=== PATIENT | female | born 1940 | race Caucasian/White ===

== ENCOUNTER → 2020-02-18 08:20 | Outpatient (CLI) | payer MEDICARE, OTHER, SELFPAY ==
[2020-02-18 22:31] LABS: COVID19 Sendout Not Detected (Not Detect)
== END ==
PROVIDERS: Visit Provider Physician Assistant
DX: Z11.59 Encounter for screening for other viral diseases (principal)
CPT/HCPCS: 87635

== ENCOUNTER 2020-02-22 13:24 | Observation (INO) | payer MEDICARE, OTHER, SELFPAY ==
[2020-02-14 07:49] VITALS: BMI 29.5
[2020-02-21] VITALS (21 sets, daily range): BP systolic 121–161; BP diastolic 44–78; PULSE 77–114; RESP 10–20; TEMP 35.6–36.3; O2SAT 95–100; BMI 29.5
--- NOTE | 2020-02-21 | DI.RAD.S_ITS ---
PROCEDURE: XR LUMBAR SPINE 2-3V INDICATIONS: L3-4, L4-5 TLIF TECHNIQUE: 2 operative views of the lumbar spine were acquired. COMPARISON: None. FINDINGS: AP and lateral operative images demonstrate posterior lateral roosevelt and pedicle screw fixation of L3 through L5 with interbody cage material placement. IMPRESSION: Operative imaging utilized for lumbar fusion surgery with no radiographic evidence of complications. Dictated by: Kristopher Schafer M.D. on 02/21/2020 at 12:37 Approved by: Kristopher Schafer M.D. on 02/21/2020 at 12:38
[2020-02-21] MEDS: LACTATED RINGERS 1,000 ML 42 ML IV ×3 (07:13→12:39)
--- NOTE | 2020-02-21 07:28 | SUR.OPER ---
Prone on spine table, head in foam head support, padded chest and pelvic supports, gel pad at knees, lower legs supported by pillows; nipples, genitalia and toes free of pressure, arms secured on foam padded arm boards at <90 degrees abduction. Tape over blanket at thigh secured to table.
--- NOTE | 2020-02-21 07:46 | PM.PREOP ---
Pre-operative Note COVID-19 COVID-19 status: Negative Result date/Date tested (Pos, Neg/Pending): 02/19/20 Interval Note History & Physical reviewed/Exam performed by Physician: Yes Changes to H&P: No
[2020-02-21 07:48] LABS: Hematocrit 39.9 % (36-46); Hemoglobin 13.3 g/dL (12.0-16.0); Mean Corpuscular HGB Conc 33.4 % (30-36); Mean Corpuscular Hemoglobin 30.3 PG (26-34); Mean Corpuscular Volume 90.8 fL (80-100); Platelet Count 215 X10^3/uL (150-400); Red Blood Cell Count 4.39 X10^6/uL (4.0-5.2); Red Cell Distribution Width 12.9 % (11.6-14.8); White Blood Cell Count 4.5 X10^3/uL (4.5-11.0)
[2020-02-21 07:56] LABS: Alanine Aminotransferase 16 IU/L (<35); Albumin 4.3 g/dL (3.5-5.0); Albumin Globulin Ratio 1.2 (1.0-2.8); Alkaline Phosphatase 49 U/L (38-126); Aspartate Aminotransferase 34 IU/L (14-36); Bilirubin Total 0.6 mg/dL (0.2-1.3); Bilirubin Unconjugated 0.4 mg/dL (0.0-1.1); Blood Urea Nitrogen 22 mg/dL (7-17); Calcium 9.7 mg/dL (8.4-10.2); Carbon Dioxide 28 mmol/L (22-32); Chloride 104 mmol/L (98-107); Estimated Glomerular Filt Rate > 60.0 mL/min (>60); Globulin 3.6 g/dL (1.7-4.1); Glucose 110 mg/dL (80-110); HEMOLYSIS 49 (0-50); Potassium 3.7 mmol/L (3.4-5.1); Sodium 137 mmol/L (137-145); Total Protein 7.9 g/dL (6.3-8.2)
[2020-02-21 08:04] LABS: Prothrombin Time 11.6 SECONDS (10.1-12.7)
[2020-02-21] MEDS: CEFAZOLIN 2 GM/100 ML FROZ.PIGGY IV ×2 (08:05→15:31)
[2020-02-21] MEDS: BUPIVACAINE 0.25% W/ EPI 30 ML VIAL INJ (08:41)
[2020-02-21] MEDS: BUPIVACAINE LIPOSOME 266 MG/20 ML VIAL INJ (08:41)
[2020-02-21] MEDS: ACETAMINOPHEN IV 1,000 MG/100 ML VIAL 400 MG IV (09:34)
--- NOTE | 2020-02-21 12:13 | P.OP_ITS ---
Operative Date/Time/Diagnoses Date of procedure: 02/21/20 Time of procedure: 07:56 Pre-op diagnosis: 1. L3-4, L4-5 spondylolisthesis 2. L3-4, L4-5 spinal stenosis with radiculopathy Post-op diagnosis: same Procedure & Clinicians Procedure: 1. L3-4, L4-5 Postero-lateral and posterior interbody fusion 2. L3-4, L4-5 interbody cage placement. 3. L3-4, L4-5 decompressive laminectomy with bilateral facetecomies 4. L3-4, L4-5 Posterior segmental instrumentation 5. Uriah of bone marrow from iliac crest 6. Utilization of microsurgical technique and operating microscope Same procedure as scheduled: Yes Indications: Patient has been having chronic back pain and worsening lumbar radiculopathy. Patient failed multiple conservative management with worsening pain weakness and numbness in her lower extremity. Patient has been having difficulty performing activity of daily living. After discussing risks benefits of treatment options, patient elected proceed with surgery. Surgeon: Glen Meadows Dormitory Keeper: Sariah Camilo Click Yes if Unassisted: No Anesthesia Type: General Operative Notes Closure Type: primary Specimen(s): none sent Prosthetic devices, grafts, tissues, transplants, or devices: Globus revolve screws, Rise cages Applied: catheter Estimated Blood Loss (mL): 300 Blood products transfused: none Procedure in detail: Patient was seen in the preoperative area. Risks and benefits of the surgery was discussed with the patient. Informed consent was obtained from the patient and placed in the chart. Surgical site was marked. Patient was taken to the operative room. General anesthesia was administered. Prophylactic antibiotic was given to the patient less than 30 min before the incision was made. Patient was placed into a prone position on the Earnest table. Patient's back was then prepped and draped in the sterile fashion. Time- out was performed at this time. Using AP and lateral C-arm imaging the interval between L3-4, L4-5 was identified and marked on patient's back. A 2 inch incision 2 in from midline was made on the left side first. The fascia was incised in line with skin incision. Globus MARS retractors was placed inside the incision and docked onto the L3 and L4 lamina. Using microsurgical technique and operating microscope, a L3 and L4 laminectomy and L3-4, L4-5 facetectomy was performed using a Kerrison rongeur. The disc space at L3-4, L4-5 was identified. And a total diskectomy was performed at L3-4, L4-5 level. The endplates were decorticated using a rasp and shaver. The total diskectomy and decortication was performed at L3-4, L4-5 level in order to to accomplish a L3-4, L4-5 fusion. The local bone from the laminectomy and facetectomy was saved for local bone grafting. After the total diskectomy and decortication was completed, Trifecta bone graft material was combined with local bone that was harvested earlier. At this time, a separate skin is incision was made over the iliac crest. A Jamshidi needle was inserted into the iliac crest through a separate skin incision. 5 cc of bone marrow aspiration was obtained through the separate skin incision using a Jamshidi needle from the iliac crest. The bone marrow aspiration was combined with local bone and the Trifecta bone grafting material. The bone grafting material was placed into the L3-4, L4-5 interbody space along with two cages, one expandable cage at each level. The cages were expanded to their maximum height using the torque limiting screwdriver. At this time a mirror image incision was made on the right side. The fascia was incised in line with the skin incision. Globus MARS retractor was inserted and docked onto the L3-4, L4-5 posterolateral gutter. Using the power drill, posterior-lateral decortication was performed at L3-4, L4-5 level until bleeding cortical bone was identified. The remaining bone grafting material was placed into the L3-4, L4-5 posterior lateral gutter he order to accomplish posterolateral fusion at the L3-4, L4-5 levels. Using the double C-arm technique, pedicle screws were placed into the L3, L4, L5 pedicles bilaterally. This was done by placing the Jamshidi needle into the pedicles, then placing the guidewires over the Jamshidi needle, and finally placing the cannulated screws over the guidewires bilaterally. After the pedicle screws were placed, 2 titanium rods was locked into the heads of the pedicle screws using locking caps and torque limiting screwdriver. Total 6 pedicles screws were placed. After all the hardware was placed, and confirmed with AP and lateral C-arm imaging, the wound was then irrigated with sterile normal saline and packed with Ray-Janet gauze for 3 min to accomplish hemostasis. After the gauze was removed the deep fascia was closed with #1 Vicryl suture. The subcutaneous layer was closed with 2-0 Vicryl. The skin was closed with skin eliot. Patient tolerated the procedure well. There were no complications. Complications: none Post-operative Condition: stable Disposition: PACU Plan for aftercare: Admit to inpatient hospital
[2020-02-21] MEDS: ONDANSETRON 4 MG/2 ML INJ IV (12:26)
[2020-02-21] MEDS: HYDROMORPHONE 2 MG INJ IV ×3 (12:26→12:59)
[2020-02-21] MEDS: hydrOXYzine 50 MG/ML INJ 25 MG IM (12:26)
[2020-02-21] MEDS: fentaNYL 100 MCG/2 ML INJ IV (12:34)
--- NOTE | 2020-02-21 14:01 | PC.NURSE ---
Day shift: Pt on unit at approx 1355 from PACU. Sleeping now. Spouse in room for support. VS WNL. 100% RA. Tolerating SCD's. Call light in reach. Bed alarm on. Pt high fall risk at this time.
[2020-02-21] MEDS: SODIUM CHLORIDE 0.9% 1,000 ML 100 ML IV (14:57)
--- NOTE | 2020-02-21 15:08 | OT.IPNOTE ---
Checked on Pt for OT eval, pt still not fully awake. Able to talk to pt's regarding home set-up and prior level, no charge.
[2020-02-21] MEDS: OXYCODONE IR 10 MG TABLET PO ×3 (15:36→22:10)
[2020-02-21] MEDS: HYDROMORPHONE 0.5 MG INJ IV (16:29)
--- NOTE | 2020-02-21 16:32 | PT-IP ANOTE ---
Received PT orders and reviewed chart. Contacted pt to initiate evaluation but pt quite drowsy and reporting 8/10 pain. PT will see pt in the morning.
[2020-02-21] MEDS: hydrOXYzine pamoate 25 MG CAPSULE PO (17:15)
[2020-02-21] MEDS: SENNOSIDES 8.6 MG TABLET 17.2 MG PO (21:00)
[2020-02-21] MEDS: LOSARTAN 50 MG TABLET 100 MG PO (21:00)
[2020-02-21] MEDS: FISH OIL 1,000 MG CAPSULE 1000 MG PO (21:01)
[2020-02-21] MEDS: DOCUSATE 100 MG CAPSULE PO (21:01)
[2020-02-21] MEDS: EZETIMIBE 10 MG TABLET PO (21:01)
[2020-02-22] VITALS (7 sets, daily range): BP systolic 117–148; BP diastolic 53–77; PULSE 74–104; RESP 17–19; TEMP 36.3–37.4; O2SAT 95–100
[2020-02-22] MEDS: SODIUM CHLORIDE 0.9% 1,000 ML 100 ML IV (00:34)
[2020-02-22] MEDS: CEFAZOLIN 2 GM/100 ML FROZ.PIGGY IV (00:34)
[2020-02-22] MEDS: OXYCODONE IR 10 MG TABLET PO ×7 (00:34→20:24)
[2020-02-22 05:34] LABS: Hematocrit 27.1 % (36-46); Hemoglobin 9.1 g/dL (12.0-16.0)
[2020-02-22] MEDS: LEVOTHYROXINE 25 MCG TABLET PO (05:38)
--- NOTE | 2020-02-22 07:34 | PM.PNPO.1 ---
Subjective Subjective Date Patient Seen: 02/22/20 Time Patient Seen: 07:34 Interval history: POD #1 s/p L3-[address] Meadows. Patient's pain well controlled last night. Nursing notes some mild confusion overnight. No complaints of numbness going down the legs. She still has a Cline catheter in place. She has not been up physical therapy yet. Exam Vital Signs (past 8 hours): - 02/22/20 00:07 02/22/20 04:45 Temperature 98.3 F 97.3 F L Pulse Rate 82 90 Respiratory Rate 18 17 Blood Pressure 120/57 L 117/60 Pulse Oximetry 97 97 Oxygen Delivery Method Room Air Oxygen Flow Rate 0 Narrative Exam Narrative: Patient lying in bed no acute distress. She is alert orient x3. Calves are soft, compressible, nontender bilaterally. SCDs on and functioning. She is able to actively dorsiflex and plantar flex. Sensation intact to light touch throughout bilateral lower extremities. Cline catheter in place. Objective Labs Result Diagrams: 02/22/20 04:55 02/21/20 06:39 Labs: Laboratory Results - last 24 hr 02/21/20 02/21/20 02/21/20 06:39 06:39 07:32 WBC 4.5 RBC 4.39 Hgb 13.3 Hct 39.9 MCV 90.8 MCH 30.3 MCHC 33.4 RDW 12.9 Plt Count 215 PT 11.6 INR 1.0 Sodium 137 Potassium 3.7 Chloride 104 Carbon Dioxide 28 BUN 22 H Creatinine 0.71 Estimated GFR > 60.0 BUN/Creatinine Ratio 31.0 H Glucose 110 Calcium 9.7 Total Bilirubin 0.6 Conjugated Bilirubin 0.0 Unconjugated Bilirubin 0.4 AST 34 ALT 16 Alkaline Phosphatase 49 Total Protein 7.9 Albumin 4.3 Globulin 3.6 Albumin/Globulin Ratio 1.2 02/22/20 04:55 WBC RBC Hgb 9.1 L Hct 27.1 L MCV MCH MCHC RDW Plt Count PT INR Sodium Potassium Chloride Carbon Dioxide BUN Creatinine Estimated GFR BUN/Creatinine Ratio Glucose Calcium Total Bilirubin Conjugated Bilirubin Unconjugated Bilirubin AST ALT Alkaline Phosphatase Total Protein Albumin Globulin Albumin/Globulin Ratio Assessment & Plan Post-op Postoperative Procedures: Procedures Operation Date: 02/21/20 07:45 Actual Procedures Side Surgeon p L3-4, L4-5 TLIF with posterior instrumentation Glen Meadows MD Patient will mobilize with physical therapy today. No excessive bending, lifting, or twisting. If patient is mobilizing well in room can remove Cline catheter today. Continue current pain control. If patient is mobilizing safely, and voiding she may be able to go home in next 1-2 days. Quality VTE Deep Vein Thrombosis/Pulmonary Embolism Present on Admission: No
[2020-02-22] MEDS: MAGNESIUM OXIDE 400 MG TABLET 200 MG PO (07:54)
[2020-02-22] MEDS: TRIAMTERENE/HCTZ 37.5/25 TABLET 1 CAP PO (07:54)
[2020-02-22] MEDS: ACETAMINOPHEN 325 MG TABLET 650 MG PO (07:59)
[2020-02-22] MEDS: DOCUSATE 100 MG CAPSULE PO ×2 (07:59→20:17)
[2020-02-22] MEDS: CHOLECALCIFEROL (VITAMIN D3) 5,000 UNIT TABLET 5000 UNIT PO (07:59)
[2020-02-22] MEDS: FISH OIL 1,000 MG CAPSULE 1000 MG PO ×2 (08:04→20:17)
--- NOTE | 2020-02-22 09:40 | PT.IIE ---
Current Diagnoses Spondylolisthesis, lumbar region (02/21/20) Spinal stenosis, lumbar region without neurogenic claudication (02/21/20) Surgery Performed Operation Date: 02/21/20 07:45 Actual Procedures p L3-4, L4-5 TLIF with posterior instrumentation - Glen Meadows MD Surgical History (Last Updated 02/10/20 @ 09:23 by Teodora Burr RN) Hx of cholecystectomy (Acute 1992) Hx of dilation and curettage (Acute ~1963) Hx of left mastectomy (Acute 1985) Hx of right mastectomy (Acute 1992) Hx of varicose vein ligation (Acute 1984) Medical History (Last Updated 02/14/20 @ 07:49 by Teodora Burr RN) Afib (Acute) Anxiety (Acute) Arthritis (Acute) Bilateral leg cramps (Acute) Breast cancer, left (Acute 1985) Breast cancer, right (Acute 1992) Hearing impaired (Acute) Hepatic cyst (Acute ~2009) HLD (hyperlipidemia) (Acute) HTN (hypertension) (Acute) Hx of vaginal delivery (Acute) Hypothyroid (Acute) Pedal edema (Acute) Physical Therapy Inpatient Evaluation/Re-Eval M1 PT/OT-IP Prior Functional Status Start: 02/21/20 15:58 Freq: NEEDED Status: Active Protocol: Document 02/22/20 09:40 AB (Rec: 02/22/20 12:19 AB [email or web address]) Medical Review Prior Functional Status Medical History Reviewed Yes Communication able to make needs known Mobility and Gait pt stated that she is independent with all mobilities and ambulation without AD Social History Household Members spouse Living Arrangements House Number of Floors (Floors) One Floor Number of Stairs To Enter/Railing? 3 steps with wide rails to enter from the front 3 steps with L rail ascending fromt he garage Home Environment Standard Height Toilet,Walk in Shower,Built-In Shower Seat Home Equipment Four Wheel Walker,Quad Cane, Hand Held Shower,Grab Bars In Shower Employment Status Retired M2 PT-IP Current Condition Start: 02/21/20 15:58 Freq: NEEDED Status: Active Protocol: Document 02/22/20 09:40 AB (Rec: 02/22/20 12:19 AB [email or web address]) Physical Therapy Current Condition Current Condition Evaluation Date 02/22/20 Treatment Diagnosis s/p L3-4, 4-5 fusion/lami; difficulty in walking Onset Date 02/21/20 Precautions Lumbar Precautions Log Roll,No Twisting,Limit Bending,Lifting Restriction of 10 lbs,Gait Belt above Incisional Area M3 PT-IP Subjective Start: 02/21/20 15:58 Freq: NEEDED Status: Active Protocol: Document 02/22/20 09:40 AB (Rec: 02/22/20 12:19 AB [email or web address]) Subjective Physical Therapy Visit Type Type Initial Evaluation Visit Start Time 09:40 Visit Stop Time 10:31 Total Visit Minutes 51 Number of SEISMIC OBSERVER Visits 0 Physical Therapy Visit Comments Patient Comments pt is agreeable to do PT Therapy Pain Assessment Pain When Pain Assessed At Rest Pain Present Pain Present Pain Reported Location lower back Intensity 2 Scale Used Numeric (0 - 10) Pain Management Techniques Apply Cold,Distraction, Modification of Treatment,Re- positioning,Timing of Activity with Medications M4 PT-IP Mobility and Gait Start: 02/21/20 15:58 Freq: NEEDED Status: Active Protocol: Document 02/22/20 09:40 AB (Rec: 02/22/20 12:19 [email or web address]) PT-Bed Mobility Assessment Rolling Type of Rolling Log Rolling Level of Assist Standby Assistance Supine to Sit Supine to Sit Standby Assistance Scooting Scooting to Edge of Bed Standby Assistance PT-Transfer Assessment Sit to and From Stand Sit to and from Stand Minimal Assistance,1 Person Assistance,Use of Upper Extremities Equipment Transfer Assistive Device Gait Belt,Front Wheeled Walker Orthotic/Prosthetic Devices or Brace: No Transfers Transfer Destination Chair Transfer Technique ambulated using FWW Transfer Ability Level of Assist Minimal Assistance,1 Person Assistance,Use of Upper Extremities Comments Mobility Comments educated on back precautions and log roll bed mobility. completed supine to sit SBA. pt was able to sit on EOB SBA. completed sit to stand min A and cues and ambulated using FWW to the chair min A and cues with (+) LOB requiring min A for stability. pt agreed to sit up on chair. call light and table placed within reach. Gait Assessment Gait Gait Assistance Required: Minimum Assistance Distance (Feet) 12 Able to Maintain Weight Bearing Status Yes During Gait Assistive Devices Assistive Device Gait Belt,Front Wheeled Walker Orthotic/Prosthetic Devices or Brace: No Gait Deviations General Gait Pattern Antalgic Factors Limiting Gait Function Factors Limiting Gait Function Decreased Activity Tolerance, Decreased Strength,Limited Range of Motion,Pain,Poor Balance,Poor Safety Awareness PT-Balance Assessment Sitting Balance and Reactions Static Sitting Balance Ability Good Dynamic Sitting Balance Ability Good Standing Balance and Reactions Static Standing Balance Ability Fair Dynamic Standing Balance Ability Fair Device Used FWW M5 PT-IP Objective Assessments Start: 02/21/20 15:58 Freq: NEEDED Status: Active Protocol: Document 02/22/20 09:40 AB (Rec: 02/22/20 12:19 AB [id number]) Orientation Orientation/Cognition Level of Alertness Alert Orientation Name,Place,Situation Language Function Ability Hard of Hearing Safety Awareness Decreased Safety Awareness Gross Range of Motion Lower Extremity ROM Assessment Within Functional Limits Strength Lower Extremity Strength Assessment Bilaterally Impaired Hip 4/5 Knee 4/5 Coordination Assessment Gross Coordination Gross Coordination WNL Sensation Assessment Sensation Gross Sensation Left LE Impaired Sensation Description Numbness,Tingling Muscle Tone Muscle Tone WNL Yes M6 PT-IP Treatment Start: 02/21/20 15:58 Freq: NEEDED Status: Active Protocol: Document 02/22/20 09:40 AB (Rec: 02/22/20 12:19 AB [email or web address]) Physical Therapy Treatment Education Education Provided Precautions,Weight Bearing Status,Post-Op Packet,Safety M7 PT-IP Assessment and Plan Start: 02/21/20 15:58 Freq: NEEDED Status: Active Protocol: Document 02/22/20 09:40 AB (Rec: 02/22/20 12:19 AB [id number]) PT Summary Assessment and Plan Potential Rehabilitation Potential Good Status of Condition at Evaluation Stable Summary Impairments Pain,ROM,Strength,Balance, Sensation,Bed Mobility, Transfers,Gait,Activity Tolerance Assessment Summary pt requiring min A with mobility and plans to go home with spouse to assist. will conduct caregiver training when appropriate as well as stair climbing training. will continue to assess progress for safe d/c paln Goals Bed Mobility Goal Independent Transfer Goal Standby Assistance,Front Wheeled Walker Gait Goal Standby Assistance,Front Wheel Walker Gait Distance 200 Other Goals improve ambulation to modified independent using FWW/4WW 250 ft up/down 3 steps L rail ascending SBA Days to Meet Goals 5 Frequency of Treatment Frequency Of Treatment Twice a Day Treatment Plan Physical Therapy Treatment Plan Bed Mobility Training,Transfer Training,Gait Training, Therapeutic Exercise,Balance Retraining,Post Op Education, Discharge Planning,Hot or Cold Pack,Neuromuscular Re-ed, Coordination Retraining,Manual Therapy Recommendations To Nursing Amount of Assist Needed 1 Person Assist Discharge Recommendations PT Discharge Recommendations Home with Assistance Transportation Needs at Discharge Private Vehicle
--- NOTE | 2020-02-22 12:08 | OT.IP.EVAL ---
Current Diagnoses Spondylolisthesis, lumbar region (02/21/20) Spinal stenosis, lumbar region without neurogenic claudication (02/21/20) Surgery Performed Operation Date: 02/21/20 07:45 Actual Procedures p L3-4, L4-5 TLIF with posterior instrumentation - Glen Meadows MD Past Medical History (Last Updated 02/14/20 @ 07:49 by Teodora Burr RN) Afib (Acute) Anxiety (Acute) Arthritis (Acute) Bilateral leg cramps (Acute) Breast cancer, left (Acute 1985) Breast cancer, right (Acute 1992) Hearing impaired (Acute) Hepatic cyst (Acute ~2009) HLD (hyperlipidemia) (Acute) HTN (hypertension) (Acute) Hx of vaginal delivery (Acute) Hypothyroid (Acute) Pedal edema (Acute) Surgical History (Last Updated 02/10/20 @ 09:23 by Teodora Burr RN) Hx of cholecystectomy (Acute 1992) Hx of dilation and curettage (Acute ~1963) Hx of left mastectomy (Acute 1985) Hx of right mastectomy (Acute 1992) Hx of varicose vein ligation (Acute 1984) Occupational Therapy Inpatient Evaluation/Re-Eval M1 PT/OT-IP Prior Functional Status Start: 02/22/20 12:58 Freq: NEEDED Status: Active Protocol: Document 02/22/20 12:08 [facility] (Rec: 02/22/20 13:16 [facility] [id number]) Medical Review Prior Functional Status Medical History Reviewed Yes Communication able to make needs known Mobility and Gait pt stated that she is independent with all mobilities and ambulation without AD Activities of Daily Living and IADL's Pt was completely independent with all her ADl and IADl needs. Prior Functional Level (Other details) Pt has a supportive who will be home at all times to assist pt as needed. Social History Household Members spouse Living Arrangements House Number of Floors (Floors) One Floor Number of Stairs To Enter/Railing? 3 steps with wide rails to enter from the front 3 steps with L rail ascending from the garage Home Environment Standard Height Toilet,Walk in Shower,Built-In Shower Seat Home Equipment Four Wheel Walker,Quad Cane, Hand Held Shower,Grab Bars In Shower Employment Status Retired M2 OT-IP Current Condition Start: 02/22/20 12:58 Freq: Status: Active Protocol: Document 02/22/20 12:08 [facility] (Rec: 02/22/20 13:16 [facility] [id number]) Occupational Therapy Current Condition Current Condition Evaluation Date 02/22/20 Treatment Diagnosis S/P L3-L5 TLIF Diagnosis Onset Date 02/21/20 Post Operative Precautions Lumbar Precautions Log Roll,No Twisting,Limit Bending,Lifting Restriction of 10 lbs,Gait Belt above Incisional Area M3 OT- IP Subjective and Pain Start: 02/22/20 12:58 Freq: Status: Active Protocol: Document 02/22/20 12:08 [facility] (Rec: 02/22/20 13:16 [facility] [id number]) OT- Subjective Occupational Therapy Visit Type Type Initial Evaluation Visit Start Time 11:28 Visit Stop Time 12:08 Total Visit Minutes 40 Occupational Therapy Visit Comments Patient Comments Pt sitting up in the recliner and requesting to use the toilet. Pt' s present in the room. Patient/Caregiver Goals To go home. OT Pain Assessment Pain When Pain Assessed At Rest Pain Present Pain Present Pain Reported Location lower back Intensity 3 Scale Used Numeric (0 - 10) M4 OT- IP ADL's Start: 02/22/20 12:58 Freq: Status: Active Protocol: Document 02/22/20 12:08 [facility] (Rec: 02/22/20 13:16 [facility] [id number]) OT BET-Pdpn-Fabzqrd Comments OT Self-Feeding Comments Not at meal time. OT ADL-Grooming General Evaluation Grooming Ability Standby Assistance Areas Needing Assistance Retrieving/Set-up of Grooming Items Comments OT Grooming Comments vc to keep fww in front of her . OT ADL-Oral Care General Eval Oral Care Ability Standby Assistance Comments Oral Care Comments Vc to spit into the cup versus bend at her back to best follow back precautions. OT ADL-Dressing General Eval Lower Body Dressing Ability Maximum Assistance Comments OT Dressing Comments Able to educate use of LB dressing equipment, pt able to demonstarte good safety to gagan/doff socks with sock aid and yarder operator. OT ADL-Toileting General Evaluation Toileting Ability Standby Assistance Comments OT Toileting Comments CGA for balnace while standing to wipe. Pt able to follow back precautions during her hygiene needs. OT ADL-Bathing Comments OT Bathing Comments To do tomorrow with pt and for caregiver training . M5 OT- IP IADL's Start: 02/22/20 12:58 Freq: Status: Active Protocol: Document 02/22/20 12:08 [facility] (Rec: 02/22/20 13:16 [facility] [id number]) OT-Instrumental Activities of Daily Living Home Safety Awareness Ability to Problem Solve Emergency Able to Problem Solve Situations Money Management Money Management Comments Pt's aware to provide supervision as needed as pt states feels groggy form pain medications. Meal Preparation Meal Preparation Comments to assist. Grain Oilseed Or Pasture Farm Worker Grain Oilseed Or Pasture Farm Worker Comments to assist. M6 OT- IP Functional Cognition Start: 02/22/20 12:58 Freq: Status: Active Protocol: Document 02/22/20 12:08 [facility] (Rec: 02/22/20 13:16 [facility] [id number]) Cognitive Factors Limiting Selfcare Function Cognitive Ability Level of Alertness Alert Patient Orientation Name,Place,Situation Attention Span Ability Capable of Focused Attention, Capable of Sustained Attention Ability to Follow Commands Able to Follow One Step Commands Safety Awareness Decreased Recall of Precautions,Decreased Ability to Apply Precautions Cognitive Comments Cognitive Assessment Comments Pt needing reminders for to recall no twisting. Pt needing safety cues for FWW to keep it in front or her and be careful not to twist when trying to turn the FWW. OT- Vision and Hearing OT- Hearing Assessment OT- Hearing Assessment WFL M7 OT- IP Mobility and Balance Start: 02/22/20 12:58 Freq: Status: Active Protocol: Document 02/22/20 12:08 [facility] (Rec: 02/22/20 13:16 [facility] [id number]) OT-Transfer Assessment Sit to and From Stand Sit to and from Stand Contact Guard Assistance, Minimal Assistance Transfers Transfer Ability Contact Guard Assistance Technique Transfer Destination Chair,Toilet Transfer Technique Stand Pivot Devices Transfer Assistive Devices Gait Belt,Front Wheeled Walker Comments Mobility Comments Able to educate pt's how to gagan/doff the gait belt and how to assist for transfers and from sit to stand. Pt's able to demonstrate good safety. OT- Balance Assessment Sitting Balance and Reactions Static Sitting Balance Ability Normal Dynamic Sitting Balance Ability Good Standing Balance and Reactions Static Standing Balance Ability Fair Comments Other Balance Tests/Deviations/Treatment Pt needing to hold to FWW or : grab bar while standing to wipi and also CGA from OT. M8 OT- IP Objective Assessments Start: 02/22/20 12:58 Freq: Status: Active Protocol: Document 02/22/20 12:08 [facility] (Rec: 02/22/20 13:16 [facility] [id number]) OT Gross Range of Motion Upper Extremity Range of Motion Assessment Within Functional Limits OT Strength Upper Extremity Strength Assessment Within Functional Limits OT-Muscle Tone Assessment Muscle Tone WNL Yes M9 OT- IP Assessment and Plan Start: 02/22/20 12:58 Freq: Status: Active Protocol: Document 02/22/20 12:08 [facility] (Rec: 02/22/20 13:16 [facility] [id number]) OT Summary Assessment and Plan Potential Rehabilitation Potential Good Analytic Complexity at Evaluation Low Summary OT Impairments Pain,Balance,Functional Cognition,Functional Mobility, Grooming,Dressing,Toileting, Bathing,Toilet Transfers, Shower Transfers,Activity Tolerance Progress Towards Goals Progressing Toward Goals Assessment Summary Pt low complexity after L3-L5 TLIF and doing well and pt's has already initiated caregiver training to be able to assist pt for transfers and ADL's. To go over showering needs tomorrow for OT. Pt would benefit from BSC and shower chair at home. To issue LB dressing equipment tomorrow. Pt looking to go home with her when medically stable. Goals Grooming Goal Independent Dressing Goal Independent Toileting Goal Independent Bathing Goal Independent Toilet Transfer Goal Independent Shower Transfer Goal Independent Patient/Caregiver Education Goal Demonstrate Post-Op Precautions,Caregiver Independent Assisting Patient Days to Meet Goals 4 Frequency of Treatment Frequency Of Treatment Once a Day Treatment Plan OT Treatment Plan ADL Training,Functional Cognition Training,Functional Mobility,Patient/Family Education,Discharge Planning Other Treatment Recommendations and Next shower Treatment Focus Discharge Recommendations OT Discharge Recommendations Home with Assistance Home Equipment Needs BSC, showeer chair Transportation Needs at Discharge Private Vehicle
--- NOTE | 2020-02-22 13:37 | CM.DANOTE ---
DCP/Assessment: Reviewed chart. Patient is a 79yr old female [facility] performed by Dr. Meadows on 02-21-20. PCP is Dr. Majano. Primary payor is 1)Medicare 2)[facility]. Met with patient and spouse explained role. Patient reports that she plans to d/c home with supportive spouse. Patient plans to see PT this AM. Prior to admit patient I in all ADL's. Patietnt does not anticipate any d/c planning needs. CM team to continue to follow. P: Home when stable. KIMMY Nixon Discharge Planning/Care Management Advanced directive, confirm from FAMILY Start: 02/21/20 14:06 Freq: Q24H Status: Complete Protocol: Document 02/21/20 14:16 YAD (Rec: 02/21/20 14:26 YAD [id number]) Advance Directive, confirm on record Time 14:26 Person contacted spouse Romero Copy received No Document 02/22/20 13:29 YAD (Rec: 02/22/20 13:29 YAD [id number]) Advance Directive, confirm on record Time 14:26 Person contacted spouse Romero Copy received No Time 13:29 Person contacted Romero and Pt Copy received No CM Discharge Assessment Start: 02/22/20 13:27 Freq: Status: Active Protocol: Document 02/22/20 13:27 KJS (Rec: 02/22/20 13:37 KJS [id number]) Discharge Planning Assessment Assigned Concrete Swimming Pool Installer KIMMY Nixon Contact Information Romero Magallon (spouse) # Advance Directives? Yes Advance Directives on File No History Provided By Patient,Medical Record Prior Living Arrangements House Household Members spouse Type of transporation used prior to Drives own vehicle admit Independent with ADL's Yes Is patient alert and oriented? Yes Caregiver for Another No Barriers to Discharge No Discharge Plan Home Transportation Arrangement Family can provide transport. Referrals Initiated None needed Whiteboard Updated in Patient Room with Yes name and ext. # of Concrete Swimming Pool Installer Review Status In Process Next Review Type Continued Stay Review Pre-Anesthesia Assessment Start: 02/10/20 08:50 Freq: Status: Active Protocol: Document 02/14/20 07:49 CAB (Rec: 02/10/20 09:43 CAB [id number]) Pre-Anesthesia Assessment Preferred Name Edith Patient Information Reviewed Via Phone Assessment Assessment Completed With Patient Comment Pt will do labs/EKG today @ [facility], COVID screen @ 02/18/20 Primary Care Provider Alex Majano Seen Specialist in Last 12 Months Yes Specialist Seen Social Worker School,Orthopedist Comment PCP visit 02/10/20 scanned to record Primary Language Japanese Psychiatric Aide Required No Height 154.94 cm Weight 70.76 kg Body Mass Index (BMI) 29.5 Hearing Ability Hard of Hearing,Use of Hearing Aid Visual Assist Glasses Dentition Type Teeth, Natural Present Barriers to Learning None,Age related,Auditory Other Aids No Hx Anesthesia Reactions Yes: slower recovery on a few occasions Hx Family Anesthesia Reaction Yes: Sister-had an issue, unsure reaction Hx Malignant Hyperthermia No Hx Blood Transfusions No Anesthesia Review Requested No alcohol intake current Alcohol Intake Frequency Other: Socially Smoking Status Never smoker Substance Use Type does not use Pain Present Pain Reported Musculoskeletal Symptoms Abnormal Gait,Back Pain, Difficulty Walking,Joint Stiffness,Numbness,Radiating Pain into Limb History of Falling (Recent or History of No ) Patient is completely paralyzed or No completely immobile Mental Status Oriented to own ability Is patient on oxygen? No Does patient have SALAZAR/SOB No Hx Sleep Apnea No Currently Taking a Beta Mitzy No Can You Climb a Flight of Stairs Without Yes SOB Hx Chest Pain No Hx SOB No Hx Syncope or Dizziness Yes: If I get up too fast Anti-Coagulant Therapy Yes: ASA - afib Has a Social Worker School Yes: Dr. Moses-formerly [facility] Cardiac Testing Yes: Echo/[facility] 10/12/19 EF: 55% ZIO patch Hx Pacemaker/ICD No Pacemaker Rep Required? No Cardiac Clearance Received Yes Comment Cardiac records scanned to record Diet Type At Home Regular,Low Carb dysphagia No Urinary Catheter Present No Hx Urinary Self Catheterization No Diabetes No Patient No Lactating No Hx Drug Resistant Organism No Presence of External or Internal Medical Yes: Hearing aids Devices Have you had any close contact with No someone diagnosed with COVID-19? Marital Status Lives With spouse Prior Living Arrangements House Number of Floors (Floors) One Floor Support System Family,Sibling(s),Spouse Does the Patient Have Assistance After Yes Surgery Patient Discharge Plan Description Return Home Comment Pt advised 2 day length of stay per surgeon Feels Safe in Current Environment Yes Been Physically Hurt or Threatened By a No Person in Current Environment Do you have thoughts of harming yourself None or others? Are you currently considering suicide? No Do you have a plan to hurt yourself or No Plan others? Do You Have Any Spiritual Beliefs That No May Affect Your HC Choices? Do You Have Any Cultural Practices That No May Affect Your HC Choices? Comment Kervin Who Can We Speak to About Patient's Care Family, friends Identifying Code for Release of Patient Declines to issue Information Health Care Proxy/Next of Kin Romero () Health Care Proxy Emergency Contact Name Fer (sister) Emergency Contact Advance Directives? Yes Advance Directives on File No Requested Patient Bring Advanced Yes Directives DOS Power of Screw Machine Operator Single Spindle Yes Power of Screw Machine Operator Single Spindle Name Nell (daughter) Power of Screw Machine Operator Single Spindle Phone Number Pt to update dos PAC Instructions Durable medical equipment, Medications to take/avoid, Nasal antibiotic,No ETOH/ petroleum product on skin DOS, NPO,Pre-surgical wash,Sturdy shoes/comfortable clothes,Do not bring valuables and remove jewelry
--- NOTE | 2020-02-22 13:58 | PT.IPTN ---
Current Diagnoses Spondylolisthesis, lumbar region (02/21/20) Spinal stenosis, lumbar region without neurogenic claudication (02/21/20) Surgery Performed Operation Date: 02/21/20 07:45 Actual Procedures p L3-4, L4-5 TLIF with posterior instrumentation - Glen Meadows MD Physical Therapy Treatment Note M2 PT-IP Current Condition Start: 02/21/20 15:58 Freq: NEEDED Status: Active Protocol: Document 02/22/20 09:40 AB (Rec: 02/22/20 12:19 AB [id number]) Physical Therapy Current Condition Current Condition Evaluation Date 02/22/20 Treatment Diagnosis s/p L3-4, 4-5 fusion/lami; difficulty in walking Onset Date 02/21/20 Precautions Lumbar Precautions Log Roll,No Twisting,Limit Bending,Lifting Restriction of 10 lbs,Gait Belt above Incisional Area M3 PT-IP Subjective Start: 02/21/20 15:58 Freq: NEEDED Status: Active Protocol: Document 02/22/20 13:19 (Rec: 02/22/20 15:14 [id number]) Subjective Physical Therapy Visit Type Type Treatment Note Visit Start Time 13:19 Visit Stop Time 13:58 Total Visit Minutes 39 Notes ANNE Combs, was present and supervised by Katty Alarcon PTA. Romero present for caregiver training. Number of SPORTS MARKETING COORDINATOR Visits 1 Physical Therapy Visit Comments Patient Comments pt is agreeable to do PT Therapy Pain Assessment Pain When Pain Assessed During Mobility Pain Present Pain Present Pain Reported Location lower back Intensity 5 Scale Used Numeric (0 - 10) Description Tightness Pain Management Techniques Re-positioning,Timing of Activity with Medications M4 PT-IP Mobility and Gait Start: 02/21/20 15:58 Freq: NEEDED Status: Active Protocol: Document 02/22/20 13:19 (Rec: 02/22/20 15:14 [id number]) PT-Bed Mobility Assessment Sit to Supine Sit to Supine Minimal Assistance PT-Transfer Assessment Sit to and From Stand Sit to and from Stand Standby Assistance,Contact Guard Assistance Equipment Transfer Assistive Device Gait Belt,Front Wheeled Walker Orthotic/Prosthetic Devices or Brace: No Transfers Transfer Destination Bed,Toilet Transfer Technique Stand Step Pivot Transfer Ability Level of Assist Standby Assistance,Contact Guard Assistance Comments Mobility Comments Pt found in chair upon entering room. Pt used FWW for sit to stand from chair w/ CGA to assess mobility and then switched to SBA. Pt ambulated in the hallway, descend/ascend 3 steps and returned back to room to work on BM. Before getting in bed pt went to the bathroom requiring CGA stand to sit w/ the help of a wall rail while parted gown for her. When finished pt performed sit to stand from toilet independently even though she was asked to wait for assistance. Pt log rolled from L side of bed w/ Min A of LE. Pt required cues for appropriate sequencing of reverse log roll. Pt left in supine w/ alarm on, SCD's on and all needs within reach and present. At the end of tx EDUCATION PROGRAM COORDINATOR was notified about her urine output. Gait Assessment Gait Gait Assistance Required: Contact Guard Assist Distance (Feet) 150 Able to Maintain Weight Bearing Status Yes During Gait Assistive Devices Assistive Device Gait Belt,Front Wheeled Walker Orthotic/Prosthetic Devices or Brace: No Gait Deviations General Gait Pattern Antalgic,Decreased Stride Length,Flexed Trunk Factors Limiting Gait Function Factors Limiting Gait Function Decreased Activity Tolerance, Decreased Strength,Limited Range of Motion,Pain,Poor Balance,Poor Safety Awareness Comments Gait Comments Pt ambulated in hallway 150 ft w/ FWW and CGA. Pt demonstrated a flexed posture, decreased stride length, but did have good foot clearance. Pt was very aware of back precautions and stayed within walker for safety. Pt used 3 point step through gait pattern w/ FWW. walked with her for 75 ft w/ CGA. Stair Climbing Assessment Evaluation Level of Assist On Stairs Contact Guard Assistance Devices Stair Climbing Assistive Devices Left Railing Technique/Endurance Stair Climbing Direction Ascend and Descend Stair Climbing Technique Step to Step Number of Steps Climbed 3 Stair Climbing Set # Repetitions (reps) 2 Comments Stair Climbing Comments Pt ascend/descend stairs w/ L rail CGA and hand hold one time w/ SPORTS MARKETING COORDINATOR for demonstration. Caregiver edu included performing second stair set w/ CGA and hand hold . PT-Balance Assessment Sitting Balance and Reactions Static Sitting Balance Ability Good Dynamic Sitting Balance Ability Good Standing Balance and Reactions Static Standing Balance Ability Fair Dynamic Standing Balance Ability Fair Device Used FWW M5 PT-IP Objective Assessments Start: 02/21/20 15:58 Freq: NEEDED Status: Active Protocol: Document 02/22/20 09:40 AB (Rec: 02/22/20 12:19 AB [id number]) Orientation Orientation/Cognition Level of Alertness Alert Orientation Name,Place,Situation Language Function Ability Hard of Hearing Safety Awareness Decreased Safety Awareness Gross Range of Motion Lower Extremity ROM Assessment Within Functional Limits Strength Lower Extremity Strength Assessment Bilaterally Impaired Hip 4/5 Knee 4/5 Coordination Assessment Gross Coordination Gross Coordination WNL Sensation Assessment Sensation Gross Sensation Left LE Impaired Sensation Description Numbness,Tingling Muscle Tone Muscle Tone WNL Yes M6 PT-IP Treatment Start: 02/21/20 15:58 Freq: NEEDED Status: Active Protocol: Document 02/22/20 09:40 AB (Rec: 02/22/20 12:19 AB [id number]) Physical Therapy Treatment Education Education Provided Precautions,Weight Bearing Status,Post-Op Packet,Safety M7 PT-IP Assessment and Plan Start: 02/21/20 15:58 Freq: NEEDED Status: Active Protocol: Document 02/22/20 13:19 (Rec: 02/22/20 15:14 [id number]) PT Summary Assessment and Plan Potential Rehabilitation Potential Good Status of Condition at Evaluation Stable Summary Impairments Pain,ROM,Strength,Balance, Sensation,Bed Mobility, Transfers,Gait,Activity Tolerance Progress Towards Goals Progressing Toward Goals Assessment Summary pt required SBA for mobility, CGA for both gait and stair climbing. Caregiver training initiated with Romero for stairs and walking. Pt amb 150 ft w/ CGA. Caregiver training w/ focus on BM to be conducted at 10 am tomorrow. Goals Bed Mobility Goal Independent Transfer Goal Standby Assistance,Front Wheeled Walker Gait Goal Standby Assistance,Front Wheel Walker Gait Distance 200 Other Goals improve ambulation to modified independent using FWW/4WW 250 ft up/down 3 steps L rail ascending SBA Days to Meet Goals 5 Frequency of Treatment Frequency Of Treatment Twice a Day Treatment Plan Physical Therapy Treatment Plan Bed Mobility Training,Transfer Training,Gait Training, Therapeutic Exercise,Balance Retraining,Post Op Education, Discharge Planning,Hot or Cold Pack,Neuromuscular Re-ed, Coordination Retraining,Manual Therapy Other Recommendations and Next Treatment Caregiver training Wed02/22 Focus at 10 am. BM and transfers worked on. Recommendations To Nursing Amount of Assist Needed 1 Person Assist Discharge Recommendations PT Discharge Recommendations Home with Assistance Transportation Needs at Discharge Private Vehicle Documentation reviewed by Tamica Alarcon PTA
[2020-02-22] MEDS: SENNOSIDES 8.6 MG TABLET 17.2 MG PO (20:17)
[2020-02-22] MEDS: LOSARTAN 50 MG TABLET 100 MG PO (20:17)
[2020-02-22] MEDS: EZETIMIBE 10 MG TABLET PO (20:18)
[2020-02-23 01:00] VITALS: BP 137/68; PULSE 100; RESP 16; TEMP 37.1; O2SAT 95
[2020-02-23 04:00] VITALS: BP 117/81; PULSE 97; RESP 18; TEMP 36.9; O2SAT 96
[2020-02-23] MEDS: LEVOTHYROXINE 25 MCG TABLET PO (05:43)
[2020-02-23 06:10] LABS: Hematocrit 27.1 % (36-46); Hemoglobin 9.1 g/dL (12.0-16.0); Mean Corpuscular HGB Conc 33.7 % (30-36); Mean Corpuscular Hemoglobin 30.7 PG (26-34); Mean Corpuscular Volume 91.1 fL (80-100); Platelet Count 146 X10^3/uL (150-400); Red Blood Cell Count 2.97 X10^6/uL (4.0-5.2); Red Cell Distribution Width 13.2 % (11.6-14.8); White Blood Cell Count 8.2 X10^3/uL (4.5-11.0)
[2020-02-23] MEDS: OXYCODONE IR 10 MG TABLET PO ×3 (06:19→13:07)
[2020-02-23 07:00] VITALS: BP 100/53; PULSE 88; RESP 15; TEMP 35.8; O2SAT 99
[2020-02-23] MEDS: DOCUSATE 100 MG CAPSULE PO (09:15)
[2020-02-23] MEDS: FISH OIL 1,000 MG CAPSULE 1000 MG PO (09:15)
[2020-02-23] MEDS: CHOLECALCIFEROL (VITAMIN D3) 5,000 UNIT TABLET 5000 UNIT PO (09:15)
[2020-02-23] MEDS: MAGNESIUM OXIDE 400 MG TABLET 200 MG PO (09:15)
[2020-02-23] MEDS: TRIAMTERENE/HCTZ 37.5/25 TABLET 1 CAP PO (09:19)
--- NOTE | 2020-02-23 10:57 | PT.IPTN ---
Current Diagnoses Spondylolisthesis, lumbar region (02/21/20) Spinal stenosis, lumbar region without neurogenic claudication (02/21/20) Surgery Performed Operation Date: 02/21/20 07:45 Actual Procedures p L3-4, L4-5 TLIF with posterior instrumentation - Glen Meadows MD Physical Therapy Treatment Note M2 PT-IP Current Condition Start: 02/21/20 15:58 Freq: NEEDED Status: Discharge Protocol: Document 02/22/20 09:40 AB (Rec: 02/22/20 12:19 AB [id number]) Physical Therapy Current Condition Current Condition Evaluation Date 02/22/20 Treatment Diagnosis s/p L3-4, 4-5 fusion/lami; difficulty in walking Onset Date 02/21/20 Precautions Lumbar Precautions Log Roll,No Twisting,Limit Bending,Lifting Restriction of 10 lbs,Gait Belt above Incisional Area M3 PT-IP Subjective Start: 02/21/20 15:58 Freq: NEEDED Status: Discharge Protocol: Document 02/23/20 10:17 SP (Rec: 02/23/20 15:04 SP [id number]) Subjective Physical Therapy Visit Type Type Treatment Note Visit Start Time 10:17 Visit Stop Time 10:57 Total Visit Minutes 40 Notes in room when arrived and provided all physical assist needed during tx. Number of SECURITY GUARD SUPERVISOR Visits 2 Physical Therapy Visit Comments Patient Comments pt is agreeable to do PT Therapy Pain Assessment Pain When Pain Assessed During Mobility Pain Present Pain Present Pain Reported Location lower back Intensity 2 Scale Used Numeric (0 - 10) Description With Movement Pain Management Techniques Re-positioning,Timing of Activity with Medications M4 PT-IP Mobility and Gait Start: 02/21/20 15:58 Freq: NEEDED Status: Discharge Protocol: Document 02/23/20 10:17 SP (Rec: 02/23/20 15:04 SP [id number]) PT-Bed Mobility Assessment Rolling Type of Rolling Log Rolling Level of Assist Minimal Assistance,1 Person Assistance Supine to Sit Supine to Sit Moderate Assistance,1 Person Assistance Sit to Supine Sit to Supine Moderate Assistance,1 Person Assistance Scooting Scooting to Edge of Bed Contact Guard Assistance PT-Transfer Assessment Sit to and From Stand Sit to and from Stand Contact Guard Assistance,1 Person Assistance,Use of Upper Extremities Equipment Transfer Assistive Device Gait Belt,Front Wheeled Walker Orthotic/Prosthetic Devices or Brace: No Transfers Transfer Destination Bed,Toilet Transfer Technique ambulated using FWW Transfer Ability Level of Assist Standby Assistance,Contact Guard Assistance,Use of Upper Extremities Comments Mobility Comments Pt was upright in chair when arrived, donned gait belt to patient and provided physical assist throught tx. Sit>stand CGA- Min A usign BUE on chair arms. SPT CGA using FWW chair>R side bed, good side stepping toward HOB with FWW, cuing for reaching back for slow descent to bed. sit> supine Mod A of 1 person and mod cuing for proper log roll to prevent twisting of her neck with good carryover from . supine>L log roll Min A >supine with Mod A support at upper trunk for righting using BUE and contact w/ cuing for BLE to EOB, scoot to EOB CGA, sit >stand CGA with cuing for hand pushing up from bed 1 UE. Ambulated further distance into hallway w/c follow but not needed to stairs and back approx 180 ft usign FWW small base receiprocal gait increased as distance progressed. Ascend/ descend 3 stairs step to gait with cuing for leading with RLE ascend/ LLE descend due to RLE not as strong, required Min A, assimulated home set up using L HR and YARDING SUPERVISOR RUE but stated will use SPC at home or will install a HR closer to reach B. Pt requested to use bathroom when returned to room, provided CGA and cuing for full pivot usign FWW and using of grab bar CGA for slow descent to toilet. Pt requested increased time in bathroom. SBA provided by and patient had call light in hand with good understanding its proper use, FULL FASHIONED GARMENT KNITTER notified paitent requring CGA before left. Gait Assessment Gait Gait Assistance Required: Contact Guard Assist Distance (Feet) 180 Able to Maintain Weight Bearing Status Yes During Gait Assistive Devices Assistive Device Gait Belt,Front Wheeled Walker Orthotic/Prosthetic Devices or Brace: No Gait Deviations General Gait Pattern Antalgic,Decreased Stride Length,Flexed Trunk Factors Limiting Gait Function Factors Limiting Gait Function Decreased Activity Tolerance, Decreased Strength,Limited Range of Motion,Pain,Poor Balance,Poor Safety Awareness Comments Gait Comments See mobility comments for further details. Stair Climbing Assessment Evaluation Level of Assist On Stairs Contact Guard Assistance Devices Stair Climbing Assistive Devices Left Railing Technique/Endurance Stair Climbing Direction Ascend and Descend Stair Climbing Technique Step to Step Number of Steps Climbed 3 Stair Climbing Set # Repetitions (reps) 1 Comments Stair Climbing Comments See mobility comments for further details. PT-Balance Assessment Sitting Balance and Reactions Static Sitting Balance Ability Good Dynamic Sitting Balance Ability Good Standing Balance and Reactions Static Standing Balance Ability Fair Dynamic Standing Balance Ability Fair Device Used FWW M5 PT-IP Objective Assessments Start: 02/21/20 15:58 Freq: NEEDED Status: Discharge Protocol: Document 02/22/20 09:40 AB (Rec: 02/22/20 12:19 AB [id number]) Orientation Orientation/Cognition Level of Alertness Alert Orientation Name,Place,Situation Language Function Ability Hard of Hearing Safety Awareness Decreased Safety Awareness Gross Range of Motion Lower Extremity ROM Assessment Within Functional Limits Strength Lower Extremity Strength Assessment Bilaterally Impaired Hip 4/5 Knee 4/5 Coordination Assessment Gross Coordination Gross Coordination WNL Sensation Assessment Sensation Gross Sensation Left LE Impaired Sensation Description Numbness,Tingling Muscle Tone Muscle Tone WNL Yes M6 PT-IP Treatment Start: 02/21/20 15:58 Freq: NEEDED Status: Discharge Protocol: Document 02/23/20 10:17 SP (Rec: 02/23/20 15:04 SP [id number]) Physical Therapy Treatment Education Education Provided Precautions,Weight Bearing Status,Safety M7 PT-IP Assessment and Plan Start: 02/21/20 15:58 Freq: NEEDED Status: Discharge Protocol: Document 02/23/20 10:17 SP (Rec: 02/23/20 15:04 SP [id number]) PT Summary Assessment and Plan Potential Rehabilitation Potential Good Status of Condition at Evaluation Stable Summary Impairments Pain,ROM,Strength,Balance, Sensation,Bed Mobility, Transfers,Gait,Activity Tolerance Progress Towards Goals Progressing Toward Goals Assessment Summary pt required Mod A for bed mobility, CGA during transfers and gait and Min for stair climbing. Pt amb 180 ft using FWW w/ CGA by . Recommended pm treatment to continue log roll and bed mobility to improve strengthening and assess progress to potentially DC this afternoon. Pt plans to return home with to assist her. Recommending HHPT to progress strength and endurance, not to PLOF at this time, patient agreed would be beneficial. Goals Bed Mobility Goal Independent Transfer Goal Standby Assistance,Front Wheeled Walker Gait Goal Standby Assistance,Front Wheel Walker Gait Distance 200 Other Goals improve ambulation to modified independent using FWW/4WW 250 ft up/down 3 steps L rail ascending SBA Days to Meet Goals 5 Frequency of Treatment Frequency Of Treatment Twice a Day Treatment Plan Physical Therapy Treatment Plan Bed Mobility Training,Transfer Training,Gait Training, Therapeutic Exercise,Balance Retraining,Post Op Education, Discharge Planning,Hot or Cold Pack,Neuromuscular Re-ed, Coordination Retraining,Manual Therapy Other Recommendations and Next Treatment Log roll and bed mobility. Focus Recommendations To Nursing Amount of Assist Needed Standby Assistance Discharge Recommendations PT Discharge Recommendations Home with Assistance,Home Health Transportation Needs at Discharge Private Vehicle
--- NOTE | 2020-02-23 11:04 | PC.NURSE ---
Assess- Patient medicated with 10mg of po oxycodone and helpful. She has worked with physical therapy. She is slow to move, but is following directions well. Her is in the room visiting and did some caregiver training with patient. She will most likely discharge home today. Denies any numbness or tingling in her lower extremities. Resting now. Dressing to lower back will be changed before she goes home, to a waterproof dressing.
[2020-02-23 11:25] VITALS: BP 125/73; PULSE 94; RESP 16; TEMP 36.9; O2SAT 99
--- NOTE | 2020-02-23 11:58 | OT.IP.TRT ---
Current Diagnoses Spondylolisthesis, lumbar region (02/21/20) Spinal stenosis, lumbar region without neurogenic claudication (02/21/20) Surgery Performed Operation Date: 02/21/20 07:45 Actual Procedures p L3-4, L4-5 TLIF with posterior instrumentation - Glen Meadows MD Occupational Therapy Treatment Note M3 OT- IP Subjective and Pain Start: 02/22/20 12:58 Freq: Status: Active Protocol: Document 02/23/20 11:10 [facility] (Rec: 02/23/20 16:32 [facility] [id number]) OT- Subjective Occupational Therapy Visit Type Type Treatment Note Visit Start Time 11:10 Visit Stop Time 11:58 Total Visit Minutes 48 Occupational Therapy Visit Comments Patient Comments Pt wanting to shower. Patient/Caregiver Goals To go home. OT Pain Assessment Pain When Pain Assessed At Rest Pain Present Pain Present Pain Reported Location lower back Intensity 4 Scale Used Numeric (0 - 10) M4 OT- IP ADL's Start: 02/22/20 12:58 Freq: Status: Active Protocol: Document 02/23/20 11:10 [facility] (Rec: 02/23/20 16:32 [facility] [id number]) OT [id number] Comments OT Self-Feeding Comments Not at meal time. OT ADL-Dressing General Eval Upper Body Dressing Ability Moderate Assistance Lower Body Dressing Ability Moderate Assistance Comments OT Dressing Comments Pt needing assist to help get brief over her feet and assist to put on her robe. OT ADL-Toileting General Evaluation Toileting Ability Standby Assistance OT ADL-Bathing Bathing Type Bathing Type Shower General Evaluation Bathing Ability Moderate Assistance Areas Needing Assistance Wash/Dry Back,Wash/Dry Perineal Area Comments OT Bathing Comments Pt's states to use BS as a shower chair at home and will be able to assist pt for all needs. M6 OT- IP Functional Cognition Start: 02/22/20 12:58 Freq: Status: Active Protocol: Document 02/23/20 11:10 [facility] (Rec: 02/23/20 16:32 [facility] [id number]) Cognitive Factors Limiting Selfcare Function Cognitive Comments Cognitive Assessment Comments Pt still a little forgetful of back precautions and needing reminders of how to do log rolling today. M7 OT- IP Mobility and Balance Start: 02/22/20 12:58 Freq: Status: Active Protocol: Document 02/23/20 11:10 [facility] (Rec: 02/23/20 16:32 [facility] [id number]) OT- Bed Mobility Assessment Sit to Supine Sit to Supine Assist Minimal Assistance,Moderate Assistance OT-Transfer Assessment Sit to and From Stand Sit to and from Stand Minimal Assistance Transfers Transfer Ability Contact Guard Assistance Technique Transfer Destination Bed,Chair,Shower Stall,Toilet Transfer Technique Stand Pivot Devices Transfer Assistive Devices Gait Belt,Front Wheeled Walker Comments Mobility Comments Pt's able to assist for transfers and bed mobility and needing initial vc for how to do reverse log rolling to be sure to have pt come down sideways onto her elbow and ear, and then able to assist with her legs up into the bed. OT- Balance Assessment Sitting Balance and Reactions Static Sitting Balance Ability Normal Dynamic Sitting Balance Ability Good Standing Balance and Reactions Static Standing Balance Ability Fair Comments Other Balance Tests/Deviations/Treatment THIERNO for balance while : stepping over threshold of the shower. M9 OT- IP Assessment and Plan Start: 02/22/20 12:58 Freq: Status: Active Protocol: Document 02/23/20 11:10 [facility] (Rec: 02/23/20 16:32 [facility] [id number]) OT Summary Assessment and Plan Potential Rehabilitation Potential Good Analytic Complexity at Evaluation Low Summary Progress Towards Goals Progressing Toward Goals Assessment Summary Pt going home today and pt's able to state good understanding and safety to be able to assist his at home. In addition pt to have other family members to assist . Goals Days to Meet Goals 1 Frequency of Treatment Frequency Of Treatment Once a Day Treatment Plan OT Treatment Plan ADL Training,Functional Cognition Training,Functional Mobility,Patient/Family Education,Discharge Planning Discharge Recommendations OT Discharge Recommendations Home with Assistance Home Equipment Needs BSC, showeer chair Transportation Needs at Discharge Private Vehicle
--- NOTE | 2020-02-23 13:14 | PM.DS.1 ---
History of Present Illness History of Present Illness Date Patient Seen: 02/23/20 Time Patient Seen: 13:15 Chief complaint: INPT Narrative: Patient's pain is moderate to severe. Denies fever chills. No nausea vomiting. Worked with physical therapy. Her daughter are home to assist her. Discharge Providers Provider Date of admission: 02/21/20 06:13 Discharge Date: 02/23/20 Primary care physician: Alex Majano MD Consults: 02/21/20 14:01 Consult to Occupational Therapy Evaluate & Treat Comment: Physician Instructions: Evaluate and treat Consult to Physical Therapy Evaluate & Treat Comment: Physician Instructions: Evaluate and Treat Discharge provider: Bryon Rivera PA-C Summary Hospital Course Discharge Diagnosis: 1. L3-4, L4-5 spondylolisthesis 2. L3-4, L4-5 spinal stenosis with radiculopathy Hospital Course: rocedure: 1. L3-4, L4-5 Postero-lateral and posterior interbody fusion 2. L3-4, L4-5 interbody cage placement. 3. L3-4, L4-5 decompressive laminectomy with bilateral facetecomies 4. L3-4, L4-5 Posterior segmental instrumentation 5. [place] of bone marrow from iliac crest 6. Utilization of microsurgical technique and operating microscope Same procedure as scheduled: Yes Indications: Patient has been having chronic back pain and worsening lumbar radiculopathy. Patient failed multiple conservative management with worsening pain weakness and numbness in her lower extremity. Patient has been having difficulty performing activity of daily living. After discussing risks benefits of treatment options, patient elected proceed with surgery. Surgeon: Glen Meadows Cork Cutter: Sariah Camilo Click Yes if Unassisted: No Anesthesia Type: General Operative Notes Closure Type: primary Specimen(s): none sent Prosthetic devices, grafts, tissues, transplants, or devices: Globus revolve screws, Rise cages Applied: catheter Estimated Blood Loss (mL): 300 Patient progressing as expected. Discharge home today in stable condition. Status at Discharge Cognitive/behavioral status at discharge: at baseline, oriented Functional status at discharge: uses cane/walker Time Spent with Patient Time spent: Less than 30 minutes Exam Vital Signs (past 8 hours): - 02/23/20 07:00 02/23/20 11:25 Temperature 96.5 F L 98.5 F Pulse Rate 88 94 H Respiratory Rate 15 16 Blood Pressure 100/53 L 125/73 Pulse Oximetry 99 99 Oxygen Delivery Method Room Air Oxygen Flow Rate 0 Narrative Exam Narrative: Pleasant 79-year-old female walking back to bed using a walker. Lumbar dressing is clean, dry and intact. Patient in no apparent distress. Able to get back in bed with very little assistance from her . Objective Labs Result Diagrams: 02/23/20 05:40 02/21/20 06:39 Labs: Laboratory Results - last 24 hr 02/23/20 05:40 WBC 8.2 D RBC 2.97 L Hgb 9.1 L Hct 27.1 L MCV 91.1 MCH 30.7 MCHC 33.7 RDW 13.2 Plt Count 146 L Discharge Assessment & Plan Assessment and Plan Assessment: Patient progressing as expected. Discharge home today in stable condition. Discharge Plan Discharge Plan Patient Disposition: Home Discharge orders & Medications Prescriptions: New acetaminophen 325 mg Tablet 650 mg PO Q6HR PRN (Reason: Pain, Mild (1-3)) Qty: 60 RF: 0 docusate sodium [DOK] 100 mg Capsule 100 mg PO BID Qty: 20 RF: 0 hydroxyzine pamoate 25 mg Capsule 25 mg PO Q4HR PRN (Reason: Nausea And Vomiting) Qty: 30 RF: 1 oxycodone 10 mg Tablet 10 mg PO Q3HR PRN (Reason: Pain, Severe (7-10)) Qty: 60 RF: 0 Continued aspirin 81 mg Tablet,Delayed Release (Dr/Ec) 81 mg PO BEDTIME RF: 0 triamterene-hydrochlorothiazid 75-50 mg Tablet 1 tab PO QAM RF: 0 losartan 100 mg Tablet 100 mg PO BEDTIME RF: 0 naproxen 500 mg Tablet 500 mg PO BID RF: 0 magnesium oxide 250 mg magnesium Tablet 250 mg PO DAILY RF: 0 ezetimibe 10 mg Tablet 10 mg PO BEDTIME RF: 0 cholecalciferol (vitamin D3) [Vitamin D3] 125 mcg (5,000 unit) Tablet 125 mcg PO DAILY RF: 0 omega 9-ztt-uhv-fish oil [Fish Oil] 1,200 (144-216) mg Capsule 1 cap PO BID RF: 0 levothyroxine 25 mcg Capsule 25 mcg PO DAILY RF: 0 Follow up/Referrals: Glen Meadows MD [Physician] - (2 wks) Alex Majano MD [Primary Care Provider] - Diet/Activity/Treatments Diet: Diet as Tolerated Activity: WBAT, limit bending, lifting, twisting Cold/Heat Therapy: ice as needed Skin/Wound/Dressing Care Report to your healthcare provider any signs of infection, such as:: chills, fever, increased pain, unusual drainage and unusual redness Dressing: keep clean and dry Visit Report/Discharge Packet Instructions: DI for Heart Failure, DI for Prescription Opioid Use, DI for Transforaminal Lumbar Interbody Fusion Stand Alone Forms: Surgery Discharge Discharge Data Primary Care Provider: Alex Majano VTE Deep Vein Thrombosis/Pulmonary Embolism Present on Admission: No
--- NOTE | 2020-02-23 14:34 | PT-IP ANOTE ---
Nursing in room preparing DC paperwork when arrived. Pt standing at sink dressed using FWW for support, SBA. DENTAL OFFICE COORDINATOR recommended further bed mobility review before left. Pt and declined suggestion, stated her bed mobility and transfer were alot better when got up and ready to leave. Pt is ok to return home with assist of her when medically stable, recommending home health PT to improve strength and functional mobility, patient and in agreement.
== END 2020-02-23 14:35 | disposition home or self-care (01) ==
LOC: AC 02-23 13:57 → OR 02-24 08:15 → AC 02-24 08:17
PROVIDERS: Anesthesiology; Physician Assistant Surgical; Admitting Provider Orthopaedic Surgery Orthopaedic Surgery of the Spine; PCP Family Medicine; Referring Provider Family Medicine; Visit Provider Orthopaedic Surgery Orthopaedic Surgery of the Spine
PROC: (CPT 22633; principal; 2020-02-21 07:45)
DX: M48.061 Spinal stenosis, lumbar region without neurogenic claudication (principal); M43.16 Spondylolisthesis, lumbar region; M54.16 Radiculopathy, lumbar region; Z11.59 Encounter for screening for other viral diseases
CPT/HCPCS: 22633; 20939; 63047; 63048; 22853 ×2; 22842; 22634; 36415; 72100; 76000; 80053; 80076; 85014; 85018; 85027; 85610; 87635; 97116; 97161; 97165; 97530; 97535; C1776; G0378; A9270; C9290; J0131; J0330; J0690; J1100; J1170; J2250; J2405; J2704; J3010; J3410